=== PATIENT | female | born 1940 | race Caucasian/White ===

== ENCOUNTER → 2016-12-23 | Outpatient (CLI) | payer OTHER ==
[~2016-12-23] MED LIST: ANORO ELLIPTA1 EACH IH; ASPIRIN81 M1; ASPIRIN81 M1 PO; B COMPLEX-VITA1 EACH; B-COMPLEX W/1 TAB.S1 PO; CALCIUM 600 + D1 TA1 PO; ELIQUIS5 MG PO; FLEXERIL PO; FLOMAX0.4 M1 PO; HYDROCHLOROTHIA25 MG PO; HYDROCODONE/APA1 T16 PO; NABUMETONE PO; NEURONTIN100 MG PO; NEXIUM PO; OXYGEN; PROTONIX PO; TENORMIN25 MG PO; VICODIN ES 7.51 EACH PO; VITAMIN B PO; VITAMIN C500 M1 PO; VITAMIN D400 UNI2; VITAMIN D400 UNI2 PO
--- NOTE | ~2016-12-23 | TH ---
Unit #: [id number] #: [id number] Patient: TACOS CONCEPCION [id number] [address] [address] [id number] O MR#: [id number] NAME: TACOS CONCEPCION : 1940 SEX: F STUDY DATE/TIME: 12/23/2016 UNIT: [facility] ROOM: STUDY DESCRIPTION: Attending Physician: Taurus Ragsdale M.D. Referring Physician: Taurus Ragsdale M.D. Primary Care Physician: Gaudencio Dasilva M.D. CARDIOLOGY REPORT EXAM Lexiscan Cardiolite stress test, nuclear portion. PROCEDURE Using technetium 99m labeled Cardiolite, rest and stress SPECT images were obtained. Multiple SPECT images were obtained in various views including horizontal and vertical long axis and short axis views of the left ventricle. Images were obtained by gated SPECT method. The patient was administered 11.71 mCi of Cardiolite at rest. Patient was administered 33 mCi of Cardiolite after Lexiscan infusion was completed. On the stress images, there is normal perfusion noted. The rest images showed normal perfusion. Comparing rest and stress images, there is no stress-induced ischemia noted. The left ventricular ejection fraction is calculated to be 52%. There is no focal wall motion abnormality seen. CONCLUSION 1. No stress-induced ischemia noted. 2. The left ventricular ejection fraction is calculated to be 52%. 3. There is no focal wall motion abnormality seen. 4. The left ventricular size is small. 5. Normal Lexiscan Cardiolite stress test. Dictated by... Juan M Sher TD: 12/23/2016 15:18 JOB #: [id number] CARDIOLOGY REPORT Page 1 of 1 X Monik Hopkins MD <ELECTRONICALLY SIGNED> 01/28/17 1524 CARDIOLOGY REPORT
--- NOTE | ~2016-12-23 | ST ---
Unit #: [id number] #: [id number] Patient: TACOS CONCEPCION [id number] [address] [address] [id number] O MR#: [id number] NAME: TACOS CONCEPCION. : 1940 SEX: F STUDY DATE/TIME: 12/23/2016 UNIT: [facility] ROOM: STUDY DESCRIPTION: Attending Physician: Taurus Ragsdale M.D. Referring Physician: Taurus Ragsdale M.D. Primary Care Physician: Gaudencio Dasilva M.D. CARDIOLOGY REPORT EXAM Lexiscan Cardiolite stress test. FINDINGS Baseline EKG: Sinus tachycardia, heart rate 115 beats per minute, left atrial abnormality, low voltage, nondiagnostic Q waves in inferolateral leads, slow R-wave progression. PROCEDURE Lexiscan is a 4-minute test with Lexiscan being injected within the first minute followed by Cardiolite. EKG during the test is equivocal to baseline, some nonspecific ST-T wave abnormalities. The patient had no complaints of chest pain, palpitations, or discharge. Had increased shortness of breath and fatigueness which resolved in recovery phase. Maximum heart rate response was 144 beats per minute with a maximum blood pressure response of 157/85 mmHg. Cardiolite was injected after Lexiscan within the first minute of the test. Radionuclide tests pending. Please correlate with nuclear images. Patient had not had her atenolol 50 mg for the last two days. Gave the dose of atenolol 50 mg x1 dose in recovery phase due to her sinus tachycardia and blood pressure. Instructed the patient not to take her home dose of atenolol because she has had here in the stress lab. Dictated by... Kenyatta Mcknight A.P.R.N. for Juan M Sher TD: 12/23/2016 11:11 JOB #: [id number] Unit #: [id number] #: [id number] Patient: TACOS CONCEPCION CARDIOLOGY REPORT Page 1 of 1 X Kenyatta Mcknight APRN CARDIOLOGY REPORT
== END | disposition home or self-care (01) ==
LOC: CNUC 06:44
DX: R07.9 Chest pain, unspecified (principal); I10 Essential (primary) hypertension
CPT/HCPCS: 78452; 93017; A9500; J2785